=== PATIENT | female | born 1935 | race Caucasian/White ===

== ENCOUNTER 2021-04-23 11:06 | Emergency (ER) | payer MEDICARE, BC ==
[2021-04-23] MEDS ORDERED: Labetalol 100 MG/20 ML MDV IVPUSH ONE ×3 (12:08→13:10)
[2021-04-23] MEDS: LORazepam 0.5 MG Tab PO ONE ×2 (12:32→12:36)
[2021-04-23] MEDS ORDERED: LORazepam 0.5 MG Tab PO ONE (12:33)
[2021-04-23 12:48] LABS: ANION GAP 12.4 mmol/L (5-15); CHLORIDE,CL 100 mmol/L (98-107); SODIUM,NA 136 mmol/L (136-145)
[2021-04-23 13:50] VITALS: BP 143/70; PULSE 67
== END 2021-04-23 14:05 | disposition home or self-care (01) ==
LOC: KA.ED 11:06
DX: M71.332 Other bursal cyst, left wrist (principal); I10 Essential (primary) hypertension; Z79.82 Long term (current) use of aspirin; Z79.899 Other long term (current) drug therapy
CPT/HCPCS: 36415; 70450; 80053; 84484; 85025; 96374; 96376; 99283; 99284-25; A9270-GY; J3490